=== PATIENT | female | born 1965 | race African-American/Black ===

== ENCOUNTER 2017-02-09 16:18 | Inpatient (IN) | payer BC ==
[~2017-02-09] VITALS: Ht 175.3 cm; Wt 91.8 kg
[~2017-02-09 16:18] MED LIST: IBUP100T7 PO; IV NORMAL SALINE 1000ML BAG 1,000 ML IV SCH; LEVO500T59 PO; METR250T PO; POLY119P4 PO; SIME125T PO
[2017-02-09 17:31] LABS: BASO # 0.1 x10^3/uL (0.0-0.2); BASO % 1 % (0-3); EOS % 2 % (0-3); HEMATOCRIT 41.1 % (36.0-47.0); HEMOGLOBIN 13.7 g/dL (12.0-15.5); LYMPH % 45 % (24-48); MEAN CORPUSCULAR HEMOGLOBIN 30 pg (25-35); MEAN CORPUSCULAR HGB CONC 33 g/dL (31-37); MEAN CORPUSCULAR VOLUME 90 fL (79-100); MONO % 5 % (0-9); NEUT % 47 % (31-73); PLATELET COUNT 259 x10^3/uL (140-400); RED BLOOD COUNT 4.55 x10^6/uL (3.50-5.40); RED CELL DISTRIBUTION WIDTH 13.2 % (11.5-14.5); WHITE BLOOD COUNT 6.8 x10^3/uL (4.0-11.0)
[2017-02-09 17:40] LABS: PROTHROMBIN TIME PATIENT 12.9 SEC (11.7-14.0)
[2017-02-09 17:42] LABS: CALCIUM 9.6 mg/dL (8.5-10.1); CREATININE 1.1 mg/dL (0.6-1.0); GFR 62.9; POTASSIUM 3.4 mmol/L (3.5-5.1)
[2017-02-09 17:48] LABS: ALBUMIN 3.6 g/dL (3.4-5.0); ALBUMIN/GLOBULIN RATIO 0.8 (1.0-1.7); TOTAL BILIRUBIN 0.6 mg/dL (0.2-1.0)
--- NOTE | 2017-02-09 18:18 | PHYS DOC ---
Past Medical History Past Medical History: Anemia, Other Additional Past Medical Histor: HEART MURMUR, HEADACHES Past Surgical History: , Hysterectomy Additional Past Surgical Histo: HYSTERECTOMY Alcohol Use: None Drug Use: None Adult General Chief Complaint Chief Complaint: CHEST PAIN HPI HPI 51-year-old -Stateless female with a past medical history of hypertension which has never been treated now presents the emergency department complaining of chest pain. Patient states over the last 1-2 days she's had mid chest pressure radiating to her shoulder shortness of breath. She does have a history of anxiety and is feeling anxious as well. She denies nausea or vomiting and is not getting diaphoretic with episodes. Patient does report that the pain is exertional today. She is not aware that she has high cholesterol or diabetes but she does not see the doctor on a regular basis. Patient is not a smoker. She does have a family history of coronary artery disease with her mother evolving heart disease in her 60s. Patient currently feels improved. Review of Systems Review of Systems Constitutional: Denies fever or chills [] Eyes: Denies change in visual acuity, redness, or eye pain [] HENT: Denies nasal congestion or sore throat [] Respiratory: Denies cough or shortness of breath [] Cardiovascular: No additional information not addressed in HPI [] GI: Denies abdominal pain, nausea, vomiting, bloody stools or diarrhea [] : Denies dysuria or hematuria [] Musculoskeletal: Denies back pain or joint pain [] Integument: Denies rash or skin lesions [] Neurologic: Denies headache, focal weakness or sensory changes [] Endocrine: Denies polyuria or polydipsia [] All other systems were reviewed and found to be within normal limits, except as documented in this note. Current Medications Current Medications Current Medications Medications (Trade) Dose Ordered Sig/Osmel Start Time Stop Time Status Last Admin Dose Admin Aspirin (Children'S Aspirin) 324 mg 1X ONCE 02/09/17 18:30 02/09/17 18:31 DC 02/09/17 18:40 324 MG Nitroglycerin (Nitro-Bid Oint) 1 inch 1X ONCE 02/09/17 18:30 02/09/17 18:31 DC 02/09/17 18:43 1 INCH Nitroglycerin (Nitrostat) 0.4 mg PRN Q5MIN PRN 02/09/17 18:30 02/10/17 18:29 Sodium Chloride 1,000 ml @ 100 mls/hr Q10H 02/09/17 07:52 02/09/17 18:26 DC 02/09/17 18:42 100 MLS/HR Allergies Allergies Allergies Coded Allergies Type Severity Reaction Last Updated Verified acetaminophen Allergy Intermediate Itching 10/02/15 Yes codeine Allergy Intermediate Itching 10/02/15 Yes oxycodone Allergy Intermediate Itching 10/02/15 Yes Physical Exam Physical Exam Well-appearing 51-year-old female in no acute distress. Patient is obese. Clear lungs regular rate and rhythm without tachycardia Constitutional: Well developed, well nourished, no acute distress, non-toxic appearance. [] HENT: Normocephalic, atraumatic, bilateral external ears normal, oropharynx moist, no oral exudates, nose normal. [] Eyes: PERRLA, EOMI, conjunctiva normal, no discharge. [] Neck: Normal range of motion, no tenderness, supple, no stridor. [] Cardiovascular:Heart rate regular rhythm, no murmur [] Lungs & Thorax: Bilateral breath sounds clear to auscultation [] Abdomen: Bowel sounds normal, soft, no tenderness, no masses, no pulsatile masses. [] Skin: Warm, dry, no erythema, no rash. [] Back: No tenderness, no CVA tenderness. [] Extremities: No tenderness, no cyanosis, no clubbing, ROM intact, no edema. [] Neurologic: Alert and oriented X 3, normal motor function, normal sensory function, no focal deficits noted. [] Psychologic: Affect normal, judgement normal, mood normal. [] Current Patient Data Vital Signs Vital Signs Date Time Temp Pulse Resp B/P (MAP) Pulse Ox O2 Delivery O2 Flow Rate FiO2 02/09/17 18:30 78 18 225/98 (140) 98 Room Air 02/09/17 16:27 98.0 98.0 Lab Values Laboratory Tests Test 02/09/17 16:40 White Blood Count 6.8 x10^3/uL (4.0-11.0) Red Blood Count 4.55 x10^6/uL (3.50-5.40) Hemoglobin 13.7 g/dL (12.0-15.5) Hematocrit 41.1 % (36.0-47.0) Mean Corpuscular Volume 90 fL (79-100) Mean Corpuscular Hemoglobin 30 pg (25-35) Mean Corpuscular Hemoglobin Concent 33 g/dL (31-37) Red Cell Distribution Width 13.2 % (11.5-14.5) Platelet Count 259 x10^3/uL (140-400) Neutrophils (%) (Auto) 47 % (31-73) Lymphocytes (%) (Auto) 45 % (24-48) Monocytes (%) (Auto) 5 % (0-9) Eosinophils (%) (Auto) 2 % (0-3) Basophils (%) (Auto) 1 % (0-3) Neutrophils # (Auto) 3.2 x10^3uL (1.8-7.7) Lymphocytes # (Auto) 3.0 x10^3/uL (1.0-4.8) Monocytes # (Auto) 0.4 x10^3/uL (0.0-1.1) Eosinophils # (Auto) 0.1 x10^3/uL (0.0-0.7) Basophils # (Auto) 0.1 x10^3/uL (0.0-0.2) Prothrombin Time 12.9 SEC (11.7-14.0) Prothrombin Time INR 1.0 (0.8-1.1) D-Dimer (Romina) 0.38 ug/mlFEU (0.00-0.50) Sodium Level 142 mmol/L (136-145) Potassium Level 3.4 mmol/L (3.5-5.1) L Chloride Level 106 mmol/L (98-107) Carbon Dioxide Level 28 mmol/L (21-32) Anion Gap 8 (6-14) Blood Urea Nitrogen 13 mg/dL (7-20) Creatinine 1.1 mg/dL (0.6-1.0) H Estimated GFR (Cockcroft-Gault) 62.9 BUN/Creatinine Ratio 12 (6-20) Glucose Level 102 mg/dL (70-99) H Calcium Level 9.6 mg/dL (8.5-10.1) Total Bilirubin 0.6 mg/dL (0.2-1.0) Aspartate Amino Transferase (AST) 19 U/L (15-37) Alanine Aminotransferase (ALT) 29 U/L (14-59) Alkaline Phosphatase 145 U/L (46-116) H Troponin I Quantitative < 0.017 ng/mL (0.000-0.055) AG-[id number]-[id number]-Type Natriuretic Peptide 36 pg/mL (0-124) Total Protein 8.0 g/dL (6.4-8.2) Albumin 3.6 g/dL (3.4-5.0) Albumin/Globulin Ratio 0.8 (1.0-1.7) L Laboratory Tests 02/09/17 16:40 Laboratory Tests 02/09/17 16:40 EKG EKG EKG with normal sinus rhythm at 85 normal axis no STEMI interpreted by me[] Radiology/Procedures Radiology/Procedures X-ray no acute disease him a unremarkable mediastinum, interpreted by id Course & Med Decision Making Course & Med Decision Making Pertinent Labs and Imaging studies reviewed. (See chart for details) Signs and symptoms consistent with exertional chest pain a possible cardiac etiology in an obese 51-year-old female with multiple cardiac risk factors including hypertension which is been untreated, unknown cholesterol, and positive family history. EKG and chest x-ray unremarkable. Patient well- appearing and pain-free on exam. Aspirin given. Troponin pending. Anticipate inpatient telemetry admission for full cardiac workup. Case will be discussed with Dr. Glenis garner hospitalist on-call regarding admission to his service. [] Dragon Disclaimer Dragon Disclaimer This electronic medical record was generated, in whole or in part, using a voice recognition dictation system. Departure Departure Impression: Primary Impression: Chest pain Disposition: ADMITTED INPATIENT Admitting Physician: Glenis Garner Condition: STABLE Referrals: JARED CASTILLO MD (PCP) VINCENZO LOREDO MD Feb 09, 2017 18:18
[2017-02-09] MEDS ORDERED: NITROGLYCERIN SUBLINGUAL 0.4 MG BOTTLE OF 25. SL PRN (18:30)
[2017-02-09] MEDS ORDERED: NITROGLYCERIN OINT 1 GM PACKET. TP ONE (18:30)
[2017-02-09] MEDS ORDERED: ASPIRIN CHEWABLE 81 MG TABLET. PO ONE (18:30)
--- NOTE | 2017-02-09 18:42 | EKG ---
[facility] [address] [place] [address] Test Date: 2017-02-09 Test Time: 16:29:21 Pat Name: TRISTEN SHERWOOD Department: Room: Gender: F Director Treasurer: : 1965 Requested By: VINCENZO LOREDO Order Number: [id number] Reading MD: Jay Green MD Measurements Intervals [place] Rate: 85 P: 40 ND: 138 QRS: 1 QRSD: 80 T: 36 QT: 378 QTc: 450 Interpretive Statements SINUS RHYTHM Electronically Signed On 02-10-2017 15:14:41 DIETIST by Jay Green MD
--- NOTE | 2017-02-09 19:11 | PDOC1 ---
History and Physical Date of Admission Date of Admission DATE: 02/09/17 TIME: 19:10 History of Present Illness History of Present Illness Ms. Edwards, is a 51-year-old -Thai female with a past medical history of hypertension which has never been treated now presents the emergency department complaining of chest pain. Patient states over the last 1-2 days she' s had mid chest pressure radiating to her shoulder shortness of breath. She does have a history of anxiety and is feeling anxious as well. She denies nausea or vomiting and is not getting diaphoretic with episodes. Patient does report that the pain is exertional today. She is not aware that she has high cholesterol or diabetes but she does not see the doctor on a regular basis. Patient is not a smoker. She does have a family history of coronary artery disease with her mother evolving heart disease in her 60s. Patient currently feels improved. Past Medical History Cardiovascular: HTN GI: No pertinent hx Heme/Onc: No pertinent hx Psych: No pertinent hx Renal/: Other Past Surgical History Past Surgical History: , Other Family History Family History: Diabetes, Heart Disease, Hypertension Social History ALCOHOL: none Drugs: None Current Problem List Problem List Problems Medical Problems: (1) Chest pain Status: Acute Problems: Current Medications Current Medications Current Medications Sodium Chloride 1,000 ml @ 100 mls/hr Q10H IV Last administered on 02/09/17 18:42; Start 02/09/17 at 07:52; Stop 02/09/17 at 18:26; Status DC Aspirin (Children'S Aspirin) 324 mg 1X ONCE PO Last administered on 18:40; Start 02/09/17 at 18:30; Stop 02/09/17 at 18:31; Status DC Nitroglycerin (Nitro-Bid Oint) 1 inch 1X ONCE TP Last administered on 18:43; Start 02/09/17 at 18:30; Stop 02/09/17 at 18:31; Status DC Sodium Chloride 1,000 ml @ 150 mls/hr Q6H40M IV ; Start 02/09/17 at 18:45; Stop 02/10/17 at 18:44 Nitroglycerin (Nitrostat) 0.4 mg PRN Q5MIN PRN SL CHEST PAIN; Start 02/09/17 at 18:30; Stop 02/10/17 at 18:29 Multi-Ingredient Mouthwash/Gargle (Gi Cocktail Single Dose) 15 ml 1X ONCE SWSW ; Start 02/09/17 at 19:15; Stop 02/09/17 at 19:16; Status UNV Lidocaine (Lidoderm) 1 patch DAILY TD ; Start 02/09/17 at 19:15; Status UNV Active Scripts Active Miralax (Polyethylene Glycol 3350) 119 Gm Powder 17 Gm PO DAILY Flagyl (Metronidazole) 250 Mg Tablet 250 Mg PO TID Levaquin (Levofloxacin) 500 Mg Tablet 1 Tab PO DAILY Reported Gas-X (Simethicone) 125 Mg Tab.chew 125 Mg PO PRN PRN Advil (Ibuprofen) 100 Mg Tab.chew 2 Tab PO PRN PRN Allergies Allergies: Coded Allergies: acetaminophen (Verified Allergy, Intermediate, Itching, 10/02/15) codeine (Verified Allergy, Intermediate, Itching, 10/02/15) oxycodone (Verified Allergy, Intermediate, Itching, 10/02/15) Vitals Vitals Vital Signs Date Time Temp Pulse Resp B/P (MAP) Pulse Ox O2 Delivery O2 Flow Rate FiO2 02/09/17 18:43 68 225/98 02/09/17 18:00 33 97 Room Air 02/09/17 16:27 98.0 98.0 Labs Labs Laboratory Tests Test 02/09/17 16:40 White Blood Count 6.8 x10^3/uL (4.0-11.0) Red Blood Count 4.55 x10^6/uL (3.50-5.40) Hemoglobin 13.7 g/dL (12.0-15.5) Hematocrit 41.1 % (36.0-47.0) Mean Corpuscular Volume 90 fL (79-100) Mean Corpuscular Hemoglobin 30 pg (25-35) Mean Corpuscular Hemoglobin Concent 33 g/dL (31-37) Red Cell Distribution Width 13.2 % (11.5-14.5) Platelet Count 259 x10^3/uL (140-400) Neutrophils (%) (Auto) 47 % (31-73) Lymphocytes (%) (Auto) 45 % (24-48) Monocytes (%) (Auto) 5 % (0-9) Eosinophils (%) (Auto) 2 % (0-3) Basophils (%) (Auto) 1 % (0-3) Neutrophils # (Auto) 3.2 x10^3uL (1.8-7.7) Lymphocytes # (Auto) 3.0 x10^3/uL (1.0-4.8) Monocytes # (Auto) 0.4 x10^3/uL (0.0-1.1) Eosinophils # (Auto) 0.1 x10^3/uL (0.0-0.7) Basophils # (Auto) 0.1 x10^3/uL (0.0-0.2) Prothrombin Time 12.9 SEC (11.7-14.0) Prothromb Time International Ratio 1.0 (0.8-1.1) D-Dimer (Romina) 0.38 ug/mlFEU (0.00-0.50) Sodium Level 142 mmol/L (136-145) Potassium Level 3.4 mmol/L (3.5-5.1) Chloride Level 106 mmol/L (98-107) Carbon Dioxide Level 28 mmol/L (21-32) Anion Gap 8 (6-14) Blood Urea Nitrogen 13 mg/dL (7-20) Creatinine 1.1 mg/dL (0.6-1.0) Estimated GFR (Cockcroft-Gault) 62.9 BUN/Creatinine Ratio 12 (6-20) Glucose Level 102 mg/dL (70-99) Calcium Level 9.6 mg/dL (8.5-10.1) Total Bilirubin 0.6 mg/dL (0.2-1.0) Aspartate Amino Transf (AST/SGOT) 19 U/L (15-37) Alanine Aminotransferase (ALT/SGPT) 29 U/L (14-59) Alkaline Phosphatase 145 U/L (46-116) Troponin I Quantitative < 0.017 ng/mL (0.000-0.055) RX-Jrv-Q-Type Natriuretic Peptide 36 pg/mL (0-124) Total Protein 8.0 g/dL (6.4-8.2) Albumin 3.6 g/dL (3.4-5.0) Albumin/Globulin Ratio 0.8 (1.0-1.7) Laboratory Tests Test 02/09/17 16:40 White Blood Count 6.8 x10^3/uL (4.0-11.0) Red Blood Count 4.55 x10^6/uL (3.50-5.40) Hemoglobin 13.7 g/dL (12.0-15.5) Hematocrit 41.1 % (36.0-47.0) Mean Corpuscular Volume 90 fL (79-100) Mean Corpuscular Hemoglobin 30 pg (25-35) Mean Corpuscular Hemoglobin Concent 33 g/dL (31-37) Red Cell Distribution Width 13.2 % (11.5-14.5) Platelet Count 259 x10^3/uL (140-400) Neutrophils (%) (Auto) 47 % (31-73) Lymphocytes (%) (Auto) 45 % (24-48) Monocytes (%) (Auto) 5 % (0-9) Eosinophils (%) (Auto) 2 % (0-3) Basophils (%) (Auto) 1 % (0-3) Neutrophils # (Auto) 3.2 x10^3uL (1.8-7.7) Lymphocytes # (Auto) 3.0 x10^3/uL (1.0-4.8) Monocytes # (Auto) 0.4 x10^3/uL (0.0-1.1) Eosinophils # (Auto) 0.1 x10^3/uL (0.0-0.7) Basophils # (Auto) 0.1 x10^3/uL (0.0-0.2) Prothrombin Time 12.9 SEC (11.7-14.0) Prothromb Time International Ratio 1.0 (0.8-1.1) D-Dimer (Romina) 0.38 ug/mlFEU (0.00-0.50) Sodium Level 142 mmol/L (136-145) Potassium Level 3.4 mmol/L (3.5-5.1) Chloride Level 106 mmol/L (98-107) Carbon Dioxide Level 28 mmol/L (21-32) Anion Gap 8 (6-14) Blood Urea Nitrogen 13 mg/dL (7-20) Creatinine 1.1 mg/dL (0.6-1.0) Estimated GFR (Cockcroft-Gault) 62.9 BUN/Creatinine Ratio 12 (6-20) Glucose Level 102 mg/dL (70-99) Calcium Level 9.6 mg/dL (8.5-10.1) Total Bilirubin 0.6 mg/dL (0.2-1.0) Aspartate Amino Transf (AST/SGOT) 19 U/L (15-37) Alanine Aminotransferase (ALT/SGPT) 29 U/L (14-59) Alkaline Phosphatase 145 U/L (46-116) Troponin I Quantitative < 0.017 ng/mL (0.000-0.055) IG-Khd-X-Type Natriuretic Peptide 36 pg/mL (0-124) Total Protein 8.0 g/dL (6.4-8.2) Albumin 3.6 g/dL (3.4-5.0) Albumin/Globulin Ratio 0.8 (1.0-1.7) VTE Prophylaxis Ordered VTE Prophylaxis Devices: Yes VTE Pharmacological Prophylaxi: Yes RENZO JONES MD Feb 09, 2017 19:11
[2017-02-09] MEDS ORDERED: MAG HYDROX/ALUMINUM HYD/SIMETH 30 ML ORAL.SUSP PO PRN (19:15)
[2017-02-09] MEDS ORDERED: METOPROLOL TART IMMED RELEASE 25 MG TABLET. PO ONE (19:15)
[2017-02-09] MEDS ORDERED: LIDO:MAALOX:DONNATAL 1:1:1 15 ML SINGLE DOSE SWSW ONE (19:15)
[2017-02-09] MEDS ORDERED: SIMETHICONE 80 MG TAB.CHEW PO PRN (19:30)
[2017-02-09] MEDS ORDERED: PANTOPRAZOLE 40 MG TABLET.DR. PO ONE (19:30)
[2017-02-09] MEDS ORDERED: ENOXAPARIN 40 MG/0.4 ML SYRINGE. SQ SCH (20:00)
[2017-02-09] MEDS: amLODIPine BESYLATE 5 MG TABLET PO SCH (20:08)
[2017-02-09] MEDS: LIDOCAINE (700MG/PATCH) PATCH. TD SCH (20:58)
[2017-02-09 22:37] VITALS: BP 167/87
[2017-02-09 23:00] VITALS: BP 151/76
[2017-02-09] MEDS: IV NORMAL SALINE 1000ML BAG 1,000 ML IV SCH (23:12)
--- NOTE | 2017-02-09 23:33 | EKG ---
[facility] [address] [place] [address] Test Date: 2017-02-09 Test Time: 23:28:34 Pat Name: TRISTEN SHERWOOD Department: Room: [facility] Gender: F Braid Maker: TD : 1965 Requested By: RENZO JONES Order Number: [id number] Reading MD: Jay Green MD Measurements Intervals [place] Rate: 57 P: 41 [place]: 158 QRS: 3 QRSD: 78 T: 8 QT: 426 QTc: 418 Interpretive Statements SINUS RHYTHM Electronically Signed On 02-10-2017 15:28:59 CROSSTIE INSPECTOR by Jay Green MD
[2017-02-10] MEDS ORDERED: traMADol 50 MG TABLET PO PRN (02:30)
[2017-02-10] MEDS: ALPRAZolam 0.5 MG TABLET PO PRN ×2 (02:40→09:29)
[2017-02-10 03:00] VITALS: BP 161/93
[2017-02-10 04:18] LABS: BASO # 0.1 x10^3/uL (0.0-0.2); BASO % 1 % (0-3); EOS % 3 % (0-3); HEMATOCRIT 38.2 % (36.0-47.0); HEMOGLOBIN 12.9 g/dL (12.0-15.5); LYMPH % 51 % (24-48); MEAN CORPUSCULAR HEMOGLOBIN 30 pg (25-35); MEAN CORPUSCULAR HGB CONC 34 g/dL (31-37); MEAN CORPUSCULAR VOLUME 90 fL (79-100); MONO % 7 % (0-9); NEUT % 38 % (31-73); PLATELET COUNT 226 x10^3/uL (140-400); RED BLOOD COUNT 4.24 x10^6/uL (3.50-5.40); WHITE BLOOD COUNT 5.9 x10^3/uL (4.0-11.0)
[2017-02-10 04:43] LABS: ALBUMIN 3.2 g/dL (3.4-5.0); ALBUMIN/GLOBULIN RATIO 0.8 (1.0-1.7); CREATININE 0.9 mg/dL (0.6-1.0); GFR 79.3; POTASSIUM 3.5 mmol/L (3.5-5.1); TOTAL BILIRUBIN 0.6 mg/dL (0.2-1.0); TOTAL PROTEIN 7.1 g/dL (6.4-8.2)
[2017-02-10 04:48] LABS: CHOLESTEROL/HDL RATIO 5.1
[2017-02-10] MEDS: IV NORMAL SALINE 1000ML BAG 1,000 ML IV SCH ×3 (06:11→16:11)
[2017-02-10 07:00] VITALS: BP 135/73
--- NOTE | 2017-02-10 08:40 | RAD ---
Single view chest radiograph 02/09/2017 Clinical indication: Nontraumatic chest pain to mid sternal area. Comparison: Chest radiograph 05/08/2015. Findings: Cardiac and mediastinal silhouettes are within normal limits. No pleural effusion, pneumothorax or focal consolidation. Impression: No acute cardiopulmonary abnormality.
[2017-02-10] MEDS: LIDOCAINE (700MG/PATCH) PATCH. TD SCH (09:00)
[2017-02-10] MEDS ORDERED: POLYETHYLENE GLYCOL 3350 17 GM PACKET. PO SCH (09:00)
[2017-02-10] MEDS ORDERED: POTASSIUM CHLORIDE 20 MEQ TABLET.ER. PO SCH (09:00)
[2017-02-10] MEDS: amLODIPine BESYLATE 5 MG TABLET PO SCH (09:29)
--- NOTE | 2017-02-10 09:51 | PDOC2 ---
DARLENE HERNANDEZ SERVICE CREW SUPERVISOR 02/10/17 0951: CARDIAC CONSULT DATE OF CONSULT Date of Consult DATE: 02/10/17 TIME: 09:48 REASON FOR CONSULT Reason for Consult: Accelerated Hypertension Chest Pain REFERRING PHYSICIAN Referring Physician: Dr. Fernandez HISTORY OF PRESENT ILLNESS HISTORY OF PRESENT ILLNESS This is a 51 yo female who presented with complaints of chest pain. Patient reports pain began yesterday afternoon. Located in her central chest and radiated around to her back. Described as burning in nature. Associated with SOA. Worsened by pressing on the central chest. Bj seemed to worsen so she decided to come into the ED for further evaluation and care. Pain improved with Tramadol. This morning, reports pain as a mild pressure. BP noted to be significantly elevated upon arrival. Does report having episode of hypertension a year and a half ago. Was not started of antiHTN therapy at that time. Has had multiple follow up appointments with her PCP since that time and she has never been told that her blood pressure was elevated at the office. Concerned about the possibility of a heart attack as her mother from a heart attack in her early 60's. Would feel more comfortable to further risk stratify with a stress test given her risk factors for CAD. . PAST MEDICAL HISTORY Cardiovascular: HTN Pulmonary: No pertinent hx GI: No pertinent hx Heme/Onc: Anemia NOS Psych: Anxiety Musculoskeletal: Osteoarthritis Rheumatologic: No pertinent hx Infectious disease: No pertinent hx ENT: No pertinent hx Renal/: No pertinent hx Endocrine: No pertinent hx Dermatology: No pertinent hx FAMILY HISTORY Family History: Coronary Artery Disease (mother ), Diabetes SOCIAL HISTORY Smoke: No ALCOHOL: none Drugs: None Lives: with Family CURRENT MEDICATIONS CURRENT MEDICATIONS Current Medications Medications (Trade) Dose Ordered Sig/Osmel Route PRN Reason Start Time Stop Time Status Last Admin Dose Admin Aspirin (Children'S Aspirin) 324 mg 1X ONCE PO 02/09/17 18:30 02/09/17 18:31 DC 02/09/17 18:40 Nitroglycerin (Nitro-Bid Oint) 1 inch 1X ONCE TP 02/09/17 18:30 02/09/17 18:31 DC 02/09/17 18:43 Sodium Chloride 1,000 ml @ 150 mls/hr Q6H40M IV 02/09/17 18:45 02/10/17 18:44 02/10/17 06:11 Multi-Ingredient Mouthwash/Gargle (Gi Cocktail Single Dose) 15 ml 1X ONCE SWSW 02/09/17 19:15 02/09/17 19:16 DC 02/09/17 20:08 Lidocaine (Lidoderm) 1 patch DAILY TD 02/09/17 19:15 02/09/17 20:58 Metoprolol Tartrate (Lopressor) 25 mg 1X ONCE PO 02/09/17 19:15 02/09/17 19:16 DC 02/09/17 20:08 Amlodipine Besylate (Norvasc) 5 mg DAILY PO 02/09/17 19:15 02/10/17 09:29 Potassium Chloride (Klor-Con) 20 meq DAILY PO 02/10/17 09:00 02/10/17 09:29 Simethicone (Gas-X) 80 mg PRN AFTMEALHC PRN PO GAS / BLOATING 02/09/17 19:30 02/09/17 23:37 Enoxaparin Sodium (Lovenox 40mg Syringe) 40 mg Q24H SQ 02/09/17 20:00 02/09/17 22:20 Pantoprazole Sodium (Protonix) 40 mg 1X ONCE PO 02/09/17 19:30 02/09/17 19:31 DC 02/09/17 20:07 Al Hydroxide/Mg Hydroxide (Mylanta Plus Xs) 30 ml PRN Q6HRS PRN PO GI PAIN 02/09/17 19:15 02/09/17 23:37 Alprazolam (Xanax) 0.5 mg PRN Q6HRS PRN PO ANXIETY / AGITATION 02/10/17 02:30 02/10/17 09:29 Tramadol HCl (Ultram) 50 mg PRN Q6HRS PRN PO MODERATE PAIN 02/10/17 02:30 02/10/17 02:40 ALLERGIES ALLERGIES: Coded Allergies: acetaminophen (Verified Allergy, Intermediate, Itching, 10/02/15) codeine (Verified Allergy, Intermediate, Itching, 10/02/15) oxycodone (Verified Allergy, Intermediate, Itching, 10/02/15) ROS Review of System 14 point ROS conducted with pertinent positives noted above in HPI. PHYSICAL EXAM General: Alert, Oriented X3, Cooperative HEENT: Atraumatic Lungs: Clear to auscultation, Normal air movement Heart: Regular rate, Normal S1, Normal S2, No murmurs, Other (central chest tenderness upon palpation) Abdomen: Soft, No tenderness Extremities: No edema, Normal pulses Skin: No significant lesion Neuro: Strength at 5/5 X4 ext, Sensation intact Psych/Mental Status: Mental status NL, Mood NL MUSCULOSKELETAL: Osteoarthritic changes both hands VITALS VITALS Vital Signs Date Time Temp Pulse Resp B/P (MAP) Pulse Ox O2 Delivery O2 Flow Rate FiO2 02/10/17 09:29 65 135/73 02/10/17 07:00 97.9 20 100 Room Air 97.9 LABS Lab: Laboratory Tests Test 02/09/17 16:40 02/10/17 04:09 White Blood Count 6.8 x10^3/uL (4.0-11.0) 5.9 x10^3/uL (4.0-11.0) Red Blood Count 4.55 x10^6/uL (3.50-5.40) 4.24 x10^6/uL (3.50-5.40) Hemoglobin 13.7 g/dL (12.0-15.5) 12.9 g/dL (12.0-15.5) Hematocrit 41.1 % (36.0-47.0) 38.2 % (36.0-47.0) Mean Corpuscular Volume 90 fL (79-100) 90 fL (79-100) Mean Corpuscular Hemoglobin 30 pg (25-35) 30 pg (25-35) Mean Corpuscular Hemoglobin Concent 33 g/dL (31-37) 34 g/dL (31-37) Red Cell Distribution Width 13.2 % (11.5-14.5) 13.0 % (11.5-14.5) Platelet Count 259 x10^3/uL (140-400) 226 x10^3/uL (140-400) Neutrophils (%) (Auto) 47 % (31-73) 38 % (31-73) Lymphocytes (%) (Auto) 45 % (24-48) 51 % (24-48) Monocytes (%) (Auto) 5 % (0-9) 7 % (0-9) Eosinophils (%) (Auto) 2 % (0-3) 3 % (0-3) Basophils (%) (Auto) 1 % (0-3) 1 % (0-3) Neutrophils # (Auto) 3.2 x10^3uL (1.8-7.7) 2.2 x10^3uL (1.8-7.7) Lymphocytes # (Auto) 3.0 x10^3/uL (1.0-4.8) 3.0 x10^3/uL (1.0-4.8) Monocytes # (Auto) 0.4 x10^3/uL (0.0-1.1) 0.4 x10^3/uL (0.0-1.1) Eosinophils # (Auto) 0.1 x10^3/uL (0.0-0.7) 0.2 x10^3/uL (0.0-0.7) Basophils # (Auto) 0.1 x10^3/uL (0.0-0.2) 0.1 x10^3/uL (0.0-0.2) Prothrombin Time 12.9 SEC (11.7-14.0) Prothromb Time International Ratio 1.0 (0.8-1.1) D-Dimer (Romina) 0.38 ug/mlFEU (0.00-0.50) Sodium Level 142 mmol/L (136-145) 142 mmol/L (136-145) Potassium Level 3.4 mmol/L (3.5-5.1) 3.5 mmol/L (3.5-5.1) Chloride Level 106 mmol/L (98-107) 109 mmol/L (98-107) Carbon Dioxide Level 28 mmol/L (21-32) 27 mmol/L (21-32) Anion Gap 8 (6-14) 6 (6-14) Blood Urea Nitrogen 13 mg/dL (7-20) 12 mg/dL (7-20) Creatinine 1.1 mg/dL (0.6-1.0) 0.9 mg/dL (0.6-1.0) Estimated GFR (Cockcroft-Gault) 62.9 79.3 BUN/Creatinine Ratio 12 (6-20) 13 (6-20) Glucose Level 102 mg/dL (70-99) 111 mg/dL (70-99) Calcium Level 9.6 mg/dL (8.5-10.1) 9.0 mg/dL (8.5-10.1) Total Bilirubin 0.6 mg/dL (0.2-1.0) 0.6 mg/dL (0.2-1.0) Aspartate Amino Transf (AST/SGOT) 19 U/L (15-37) 20 U/L (15-37) Alanine Aminotransferase (ALT/SGPT) 29 U/L (14-59) 31 U/L (14-59) Alkaline Phosphatase 145 U/L (46-116) 127 U/L (46-116) Troponin I Quantitative < 0.017 ng/mL (0.000-0.055) < 0.017 ng/mL (0.000-0.055) II-Ntr-W-Type Natriuretic Peptide 36 pg/mL (0-124) Total Protein 8.0 g/dL (6.4-8.2) 7.1 g/dL (6.4-8.2) Albumin 3.6 g/dL (3.4-5.0) 3.2 g/dL (3.4-5.0) Albumin/Globulin Ratio 0.8 (1.0-1.7) 0.8 (1.0-1.7) Triglycerides Level 115 mg/dL (0-150) Cholesterol Level 190 mg/dL (0-200) LDL Cholesterol, Calculated 130 mg/dL (0-100) VLDL Cholesterol, Calculated 23 mg/dL (0-40) Non-HDL Cholesterol Calculated 153 mg/dL (0-129) HDL Cholesterol 37 mg/dL (40-60) Cholesterol/HDL Ratio 5.1 ASSESSMENT/PLAN ASSESSMENT/PLAN 1. Chest pain, atypical and most probably MSK in origin 2. Malignant hypertension 3. Anxiety 4. Dyslipidemia Recommendations Add ACEi Recommend diet and lifestyle modification with outpatient followup of lipids. Start statin if remains elevation despite changes Given risk factors, discussed MPI to r/o ischemia. Patient requesting this to be done as an inpatient. Has been NPO, will proceed with this morning If no evidence of ischemia, may discharge from a CV standpoint Problems: JOSE DOWD MD 02/10/17 7951: CARDIAC CONSULT ALLERGIES ALLERGIES: Coded Allergies: acetaminophen (Verified Allergy, Intermediate, Itching, 10/02/15) codeine (Verified Allergy, Intermediate, Itching, 10/02/15) oxycodone (Verified Allergy, Intermediate, Itching, 10/02/15) ASSESSMENT/PLAN ASSESSMENT/PLAN Pt. seen and examined. Agree with above RN CARDIAC REHAB note. 51 y.o with non-specific symptoms. Suspect anxiety. Given risk factors, underwent MPI, which was normal today. Supportive care. Thanks Problems: DARLENE HERNANDEZ APRN Feb 10, 2017 09:51 JOSE DOWD MD Feb 10, 2017 22:39
[2017-02-10 11:00] VITALS: BP 140/78
[2017-02-10] MEDS ORDERED: REGADENOSON 0.4 MG/5 ML DISP.SYRIN. IV ONE (11:00)
[2017-02-10 13:38] VITALS: BP 140/78
[2017-02-10] MEDS ORDERED: LISINOPRIL 10 MG TABLET PO SCH (14:00)
--- NOTE | 2017-02-10 14:47 | RAD ---
APPROVED REPORT Test Type: Pharmacological Stress Nurse/Tech: Meredith Oconnell R.N. Test Indications: chest pain Cardiac History: see ehr Medications: see ehr Medical History: see ehr Resting ECG: sr Resting Heart Rate: 66 bpm Resting Blood Pressure: 159/83mmHg Pretest Chest Pain: No chest pain Nurse/Tech Notes lungs cta, heart tones regular Consent: The procedure was explained to the patient in lay terms. Informed consent was witnessed. Prince eout was entered into atokore. History and Stress Test performed by RT Santo (R) (N) Pharm. Details Pharmacologic stress testing was performed using 0.4mg per 5ml of regadenoson given intravenously ove r 7-10 seconds. Stress Symptoms No chest pain or symptoms.Dyspnea POST EXERCISE Reason for Termination: Infusion complete Target HR: No Max HR: 118 bpm Max Blood Pressure: 176/93mmHg Chest Pain: No. Arrhythmia: No. ST Change: Yes. Immediate T wave inversion and ST seg depression after injection, all resolved within the first minute of recovery INTERPRETATION Stress EKG Conclusion: Non-specific ST/T changes Imaging Protocol IMAGE PROTOCOL: Rest Tc-99m/stress Tc-99m 1 day Rest: Stress: Viability: Radiopharm.Tc99m GduymqohgKs75x Sestamibi Izbc05zRo 32mCi Duration 15min. 10min. Img Date 02/10/2017 02/10/2017 Inj-Img [id number]. 60min. Rest Admin Site:IV - Right AntecubitalAdministrator:RT Santo (R)(N) Stress Admin Site: IV - Right AntecubitalAdministrator: RT Jaci (R)(N) STRESS DATA End Diast. Vol.55.0mlAv. Heart Rate87.0bpm End Syst. Vol.18.0mlCO Index BSA0.0L/min Myocardial Idgn536.0gEject. Nosfexnc16.0% Stress Rates Pk. Fill Rate3.48EDV/secLVtime Pk. Fill 164.94msec Pk. Empty Rate4.05ESV/secLVtime Pk. Apdqw868.89msec 04/01 Pk. Fill0.97EDV/sec Stress Scores Regional WT0.00Summed WT0.00 Regional WM0.00Summed WM14.00 The rest and stress images show normal perfusion, normal contraction and thickening. LV Perf. Quant 17 Seg. SSS2.00 17 Seg. SRS2.00 17 Seg. SDS0.00 Stress Defect Extent (% LAD)0.00Rest Defect Extent (% LAD)0.00Rev. Defect Extent (% LAD)0.00 Stress Defect Extent (% LCX) 15.00Rest Defect Extent (% LCX)16.30Rev. Defect Extent (% LCX)0.00 Stress Defect Extent (% RCA)0.00Rest Defect Extent (% RCA)0.00Rev. Defect Extent (% RCA)0.00 Stress Defect Extent (% OKSANA)2.60Rest Defect Extent (% OKSANA)2.80Rev. Defect Extent (% OKSANA)0.00 Other Information Quality:Fair Risk Assessment: Low Risk Conclusion 1. Non-specific ST/T changes upon vasodilator infusion on EKG, resolved within 30 seconds. Non-diagno stic for any acute ischemia. 2. Normal perfusion at stress/rest. 3. Normal EF at > 60% 4. Low risk study.
[2017-02-10] MEDS ORDERED: AMLO5TAB2 PO (15:57)
--- NOTE | 2017-02-10 15:58 | PDOC3 ---
Discharge Summary [facility] Date of Admission: Feb 09, 2017 Discharge Date: Feb 10, 2017 Admitting Diagnosis chest pain, 2/2 HTn, muscular pain HTN urgency hld anxiety Problems: Final Diagnosis CONSULTS card Brief Hospital Course Ms. Edwards is a 51 old F, h/o HTN but no meds on it, came for chest pain, + tenderness. EKG, ce NEG. MPI neg. dc home with amlodipine. dc time 35min General: Alert, Oriented X3, Cooperative HEENT: Atraumatic Lungs: Clear to auscultation, Normal air movement Heart: Regular rate, Normal S1, Normal S2, No murmurs, Other (central chest tenderness upon palpation) Abdomen: Soft, No tenderness Extremities: No edema, Normal pulses Skin: No significant lesion Neuro: Strength at 5/5 X4 ext, Sensation intact Psych/Mental Status: Mental status NL, Mood NL MUSCULOSKELETAL: Osteoarthritic changes both hands Patient History: Family history: Cardiovascular disease (situation) 32 MOTHER (MOTHER- HAD CHF,HTN, ALZ, MAJOR CVA, AT AGE 82 2010) 33 FATHER (NH- AT 80'S) Family history: Diabetes mellitus (situation) G8 BROTHER (DM ) G8 BROTHER (DM) G8 SISTER (DM HTN) Problems: Disposition home CONDITION AT DISCHARGE: Improved Diet regular Scheduled Levofloxacin (Levaquin), 1 TAB PO DAILY Metronidazole (Flagyl), 250 MG PO TID Polyethylene Glycol 3350 (Miralax), 17 GM PO DAILY Scheduled PRN Ibuprofen (Advil), 2 TAB PO PRN PRN for HEADACHE, (Reported) Simethicone (Gas-X), 125 MG PO PRN PRN for PRN, (Reported) Follow Up pcp in 2 weeks JOCY OSHEA MD Feb 10, 2017 15:58
== END 2017-02-10 16:38 | disposition home or self-care (01) | DRG 305 ==
LOC: ER 16:18 → 5 NORTH 18:33
PROVIDERS: ADMIT Internal Medicine; ATTEND Internal Medicine
DX: I16.0 Hypertensive urgency (principal); E78.5 Hyperlipidemia, unspecified; I10 Essential (primary) hypertension; F41.9 Anxiety disorder, unspecified; M19.90 Unspecified osteoarthritis, unspecified site; Z82.49 Family history of ischemic heart disease and other diseases of the circulatory system; Z83.3 Family history of diabetes mellitus; Z90.710 Acquired absence of both cervix and uterus; Z88.5 Allergy status to narcotic agent; Z88.8 Allergy status to other drugs, medicaments and biological substances
CPT/HCPCS: 36415; 71010; 78452; 80053; 80061; 83880; 84484; 85025; 85379; 85610; 93005; 93017; 96374; 96375; 96376; A9500; J1650; J2785; J7030; 99285-25

== ENCOUNTER 2018-08-19 17:12 | Emergency (ER) | payer BC, OTHER ==
[~2018-08-19] VITALS: Ht 175.3 cm; Wt 82.6 kg
[~2018-08-19 17:12] MED LIST changes: +AMLO5TAB10 PO; -IV NORMAL SALINE 1000ML BAG 1,000 ML IV SCH
[2018-08-19 19:20] VITALS: BP 196/89
--- NOTE | 2018-08-19 20:40 | RAD ---
LUMBAR SPINE 2-3V History: Pain after jumping on a trampoline Comparison: None. Findings: 3 views lumbar spine are submitted. Lumbar vertebral body stature and AP alignment are maintained. There is minimal spondylosis L3-4 and L4-5. Intervertebral disc spaces are relatively preserved. No acute osseous abnormality is identified by radiographs. There is retained stool in segments of colon. Impression: 1. No acute osseous abnormality is identified by radiographs. Electronically signed by: Jameson Newman MD (08/19/2018 8:37 PM) [facility]
[2018-08-19] MEDS ORDERED: DICL50TA4 PO (20:49)
[2018-08-19] MEDS ORDERED: CYCL10TA2 PO (20:49)
--- NOTE | 2018-08-19 20:49 | PHYS DOC ---
Past Medical History Past Medical History: Anemia, Hypertension, Other Additional Past Medical Histor: HEART MURMUR, HEADACHES Past Surgical History: , Hysterectomy Additional Past Surgical Histo: HYSTERECTOMY Alcohol Use: None Drug Use: None Adult General Chief Complaint Chief Complaint: LOWER BACK PAIN OR INJURY [facility] HPI Patient is a 53 year old female with a history of uncontrolled hypertension who presents to the ED today complaining of 8 out of 10 bilateral low back pain nonradiating in nature described as sharp and intermittent that began today while jumping on a bouncy house 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 Patient denies any pain radiating to bilateral lower extremities. Denies any loss of bowel bladder function. She is asking for x-rays of her back. Review of Systems Review of Systems Constitutional: Denies fever or chills [] Eyes: Denies change in visual acuity, redness, or eye pain [] HENT: Denies nasal congestion or sore throat [] Respiratory: Denies cough or shortness of breath [] Cardiovascular: No additional information not addressed in HPI [] GI: Denies abdominal pain, nausea, vomiting, bloody stools or diarrhea [] : Denies dysuria or hematuria [] Musculoskeletal: Reports low back pain. Integument: Denies rash or skin lesions [] Neurologic: Denies headache, focal weakness or sensory changes [] All other systems were reviewed and found to be within normal limits, except as documented in this note. Allergies Allergies Allergies Coded Allergies Type Severity Reaction Last Updated Verified acetaminophen Allergy Intermediate Itching 10/02/15 Yes codeine Allergy Intermediate Itching 10/02/15 Yes oxycodone Allergy Intermediate Itching 10/02/15 Yes Physical Exam Physical Exam Constitutional: Well developed, well nourished, no acute distress, non-toxic appearance. [] HENT: Normocephalic, atraumatic, bilateral external ears normal, oropharynx moist, no oral exudates, nose normal. [] Eyes: PERRLA, EOMI, conjunctiva normal, no discharge. [] Neck: Normal range of motion, no tenderness, supple, no stridor. [] Cardiovascular:Heart rate regular rhythm, no murmur [] Lungs & Thorax: Bilateral breath sounds clear to auscultation [] Abdomen: Bowel sounds normal, soft, no tenderness, no masses, no pulsatile masses. [] Skin: Warm, dry, no erythema, no rash. [] Back: Diffuse paraspinal muscle tenderness bilateral lumbar spine, no midline lumbar spine tenderness, no CVA tenderness. Negative straight leg raises bilaterally. Extremities: No tenderness, no cyanosis, no clubbing, ROM intact, no edema. [] Neurologic: Alert and oriented X 3, normal motor function, normal sensory function, no focal deficits noted. [] Psychologic: Affect normal, judgement normal, mood normal. [] Current Patient Data Vital Signs Vital Signs Date Time Temp Pulse Resp B/P (MAP) Pulse Ox O2 Delivery O2 Flow Rate FiO2 08/19/18 19:20 98.1 69 14 196/89 (124) 100 Room Air 98.1 EKG EKG [] Radiology/Procedures Radiology/Procedures []PROCEDURE: LUMBAR SPINE 2-3V LUMBAR SPINE 2-3V History: Pain after jumping on a trampoline Comparison: None. Findings: 3 views lumbar spine are submitted. Lumbar vertebral body stature and AP alignment are maintained. There is minimal spondylosis L3-4 and L4-5. Intervertebral disc spaces are relatively preserved. No acute osseous abnormality is identified by radiographs. There is retained stool in segments of colon. Impression: 1. No acute osseous abnormality is identified by radiographs. Electronically signed by: Selena Marques MD (08/19/2018 8:37 PM) [facility] DICTATED and SIGNED BY: SELENA MARQUES MD DATE: 08/19/182036 Course & Med Decision Making Course & Med Decision Making Pertinent Labs and Imaging studies reviewed. (See chart for details) This is a 53-year-old female patient who presents to the ED today complaining of low back pain after jumping in a bouncy house. Lumbar spine x-rays interpreted by radiologist were negative for any acute findings. Patient was discharged with cyclobenzaprine and diclofenac. Patient was noted to be hypertensive with blood pressures in the 190s over 80s. She has history of hypertension and is not on any medications. She has no headache, no chest pain or shortness of breath. Discussed with patient the importance of compliance with high blood pressure treatment. Provided a clinic list as well as a primary care doctor's list for follow-up as an outpatient for medical management. Dragon Disclaimer Dragon Disclaimer This electronic medical record was generated, in whole or in part, using a voice recognition dictation system. Departure Departure Impression: Primary Impression: HTN (hypertension) Additional Impression: Acute lumbosacral myofascial strain Disposition: 01 HOME, SELF-CARE Condition: STABLE Referrals: JARED CASTILLO MD (PCP) follow up as soon as you can for high blood pressure management Patient Instructions: Hypertension, Lumbosacral Strain Additional Instructions: You were evaluated in the medicine for back pain, your lumbar spine x-rays are negative for any acute findings. You can apply heat or ice to the lumbar spine. Take the prescribed medications as needed. Your blood pressure is high. You have history of high blood pressure. Please follow up with your primary care doctor for this. Consider weight loss, consider diet and exercise as life style changes related to high blood pressure. Scripts Cyclobenzaprine Hcl (CYCLOBENZAPRINE HCL) 10 Mg Tablet 1 TAB PO TID, #30 TAB Prov: KEKE KOENIG APRN 08/19/18 Diclofenac Sodium (DICLOFENAC SODIUM) 50 Mg Tablet.dr 1 TAB PO BID, #20 TAB 0 Refills Prov: KEKE KOENIG APRN 08/19/18 Problem Qualifiers Primary Impression: HTN (hypertension) Hypertension type: unspecified Qualified Codes: I10 - Essential (primary) hypertension Additional Impression: Acute lumbosacral myofascial strain Encounter type: initial encounter Qualified Codes: S39.012A - Strain of muscle, fascia and tendon of lower back, initial encounter KEKE KOENIG APRN August 19, 2018 20:49
== END 2018-08-19 20:56 | disposition home or self-care (01) ==
LOC: ER 17:12
DX: S39.012A Strain of muscle, fascia and tendon of lower back, initial encounter (principal); I10 Essential (primary) hypertension; Z98.890 Other specified postprocedural states; Z90.710 Acquired absence of both cervix and uterus; Z88.6 Allergy status to analgesic agent; Z88.5 Allergy status to narcotic agent; X50.9XXA Other and unspecified overexertion or strenuous movements or postures, initial encounter; Y93.39 Activity, other involving climbing, rappelling and jumping off; Y92.89 Other specified places as the place of occurrence of the external cause; Y99.0 Civilian activity done for income or pay
CPT/HCPCS: 72100; 99284